=== PATIENT | female | born 1965 | race Caucasian/White ===

== ENCOUNTER → 2016-08-07 | Outpatient (CLI) | payer OTHER ==
[~2016-08-07] MED LIST: CLARITIN 10MG T10 MG PO; FENOFIBRATE160 MG PO; HYDROXYZINE PAM25 MG PO; LIPITOR TAB 1010 MG PO; LORATADINE10 MG PO; LOVENOX SY30 MG/0.3 SQ; MONTELUKAST SOD10 MG PO; NEURONTIN 300300 MG PO; NORCO 10-325 T1 EACH PO; OXYCODONE-ACET1 EACH PO; PERCOCET 10-321 EACH PO; PREMARIN0.3 MG PO; SINGULAIR10 MG PO; VITAMIN D400 UNI1 PO
[2016-08-07 10:43] LABS: HEMOGLOBIN 12.8 gm/dl (12.3-15.3); RED BLOOD COUNT 4.35 M/UL (4.00-5.10)
[2016-08-07 11:05] LABS: BUN/CREATININE RATIO 13 (0-10)
== END ==
LOC: OPSV2 09:30
PROVIDERS: Orthopaedic Surgery
DX: Z01.812 Encounter for preprocedural laboratory examination (principal); Z01.818 Encounter for other preprocedural examination; T84.84XA Pain due to internal orthopedic prosthetic devices, implants and grafts, initial encounter; Z88.6 Allergy status to analgesic agent; Z88.5 Allergy status to narcotic agent; Z88.8 Allergy status to other drugs, medicaments and biological substances; J44.9 Chronic obstructive pulmonary disease, unspecified; J45.909 Unspecified asthma, uncomplicated
CPT/HCPCS: 36415; 71020; 80048; 85027

== ENCOUNTER → 2016-08-15 | Day surgery (SDC) | payer OTHER ==
[~2016-08-15] VITALS: Ht 157.5 cm; Wt 71.2 kg
== END | disposition home or self-care (01) ==
LOC: OR 07:50
PROVIDERS: Orthopaedic Surgery
PROC: 0YP90YZ Removal of Other Device from Right Lower Extremity, Open Approach (ICD-10-PCS; principal; 2016-08-15 09:45)
DX: S82.001D Unspecified fracture of right patella, subsequent encounter for closed fracture with routine healing (principal); E78.5 Hyperlipidemia, unspecified; J44.9 Chronic obstructive pulmonary disease, unspecified; E07.9 Disorder of thyroid, unspecified; M81.0 Age-related osteoporosis without current pathological fracture; J45.909 Unspecified asthma, uncomplicated; E78.00 Pure hypercholesterolemia, unspecified; M19.90 Unspecified osteoarthritis, unspecified site; G89.29 Other chronic pain; F17.210 Nicotine dependence, cigarettes, uncomplicated; E55.9 Vitamin D deficiency, unspecified; Z90.710 Acquired absence of both cervix and uterus; Z87.442 Personal history of urinary calculi; Z79.891 Long term (current) use of opiate analgesic; Z79.52 Long term (current) use of systemic steroids; Z79.899 Other long term (current) drug therapy; Z88.1 Allergy status to other antibiotic agents; Z82.49 Family history of ischemic heart disease and other diseases of the circulatory system; Z80.9 Family history of malignant neoplasm, unspecified; Z86.69 Personal history of other diseases of the nervous system and sense organs; X58.XXXD Exposure to other specified factors, subsequent encounter
CPT/HCPCS: 73560; 76000; J0690; J1885; J2250; J3010; J7120